=== PATIENT | female | born 1970 | race Caucasian/White ===

== ENCOUNTER → 2018-01-14 | Outpatient (CLI) | payer OTHER ==
--- NOTE | 2018-01-14 15:14 | Diagnostic Imaging Report ---
INDICATION: Routine screening. No prior studies are available for comparison. This is a baseline mammogram. The current study was also evaluated with a Computer Aided Detection (CAD) system. FINDINGS: Scattered fibronodular densities are identified bilaterally. No dominant mass or malignant-appearing microcalcifications are seen. The axillae are unremarkable. IMPRESSION: No mammographic features suspicious for malignancy are identified. ACR BI-RADS Category 1: Negative. Result letter will be mailed to the patient. Note: At least 10% of breast cancer is not imaged by mammography. Dictated by: Dictated on workstation # [id number]
== END ==
LOC: RAD 07:59
PROVIDERS: ATTEND Nurse Practitioner Family
DX: Z12.31 Encounter for screening mammogram for malignant neoplasm of breast (principal)
CPT/HCPCS: 77067

== ENCOUNTER 2018-01-28 12:09 | Outpatient (CLI) | payer SELFPAY ==
[~2018-01-28] VITALS: Ht 157.5 cm; Wt 76.7 kg
[2018-01-28 12:25] VITALS: BP 128/80
[2018-01-28 13:00] LABS: BASOPHILS % (AUTO) 1 % (0-10); EOSINOPHILS # (AUTO) 0.1 10^3/uL (0.0-0.3); EOSINOPHILS % (AUTO) 3 % (0-10); HEMATOCRIT 35 % (35-52); HEMOGLOBIN 11.7 G/DL (11.5-16.0); LYMPHOCYTES # (AUTO) 1.3 X 10^3 (1.0-4.0); LYMPHOCYTES % (AUTO) 27 % (12-44); MEAN CORPUSCULAR HEMOGLOBIN 28 PG (25-34); MEAN CORPUSCULAR HGB CONC 33 G/DL (32-36); MEAN CORPUSCULAR VOLUME 85 FL (80-99); MEAN PLATELET VOLUME 9.2 FL (7.4-10.4); MONOCYTES # (AUTO) 0.4 X 10^3 (0.0-1.0); MONOCYTES % (AUTO) 9 % (0-12); NEUTROPHILS # (AUTO) 2.8 X 10^3 (1.8-7.8); NEUTROPHILS % (AUTO) 60 % (42-75); PLATELET COUNT 268 10^3/uL (130-400); RED BLOOD COUNT 4.12 10^6/uL (4.35-5.85); WHITE BLOOD COUNT 4.6 10^3/uL (4.3-11.0)
[2018-01-30] MEDS ORDERED: DOCU100C37 PO (07:23)
[2018-01-30] MEDS ORDERED: HYDR-34 PO (07:23)
[2018-01-30] MEDS ORDERED: IBUP-1773 PO (07:23)
[2018-01-30] MEDS ORDERED: SIME80TA16 PO (07:23)
== END 2018-01-28 12:55 | disposition home or self-care (01) ==
LOC: PREOP 12:09
PROVIDERS: ATTEND Obstetrics & Gynecology
DX: Z01.812 Encounter for preprocedural laboratory examination (principal); Z11.2 Encounter for screening for other bacterial diseases; R10.2 Pelvic and perineal pain
CPT/HCPCS: 36415; 84703; 85025; 87081

== ENCOUNTER 2018-01-30 06:10 | Day surgery (SDC) | payer SELFPAY ==
[~2018-01-30] VITALS: Ht 157.5 cm; Wt 76.7 kg
[2018-01-30 06:30] VITALS: BP 122/78
[2018-01-30] MEDS ORDERED: FAMOTIDINE 20MG/2ML IV (PEPCID) IV ONE (06:45)
[2018-01-30] MEDS ORDERED: LACTATED RINGERS 1,000 ML IV PRN (06:45)
[2018-01-30] MEDS ORDERED: ceFAZolin INJECTION 1,000 MG in NS (IVPB) 50 ML IV ONE (06:45)
[2018-01-30] MEDS ORDERED: metroNIDAZOLE 500MG/100ML IVPB 100 ML IV ONE (06:45)
[2018-01-30] MEDS ORDERED: ceFAZolin 1,000 MG (ANCEF) VIAL ONE (06:51)
[2018-01-30] MEDS ORDERED: metroNIDAZOLE 500MG/100ML IVPB 100 ML ONE (06:51)
[2018-01-30] MEDS ORDERED: NS (IVPB) 50 ML ONE (06:51)
[2018-01-30] MEDS ORDERED: LIDOCAINE PF 2% 5 ML (XYLOCAINE) VIAL ONE (06:53)
[2018-01-30] MEDS ORDERED: ROCURONIUM 50 MG/5 ML (ZEMURON) VIAL IV ONE (06:53)
[2018-01-30] MEDS ORDERED: DEXAMETHASONE 10 MG/ML (DECADRON) 1 ML VIAL ONE (06:53)
[2018-01-30] MEDS ORDERED: fentaNYL INJECTION 100 MCG/2 ML AMP ONE (06:53)
[2018-01-30] MEDS ORDERED: ONDANSETRON 4 MG/2 ML (SDV) Z0FRAN ONE (06:53)
[2018-01-30] MEDS ORDERED: VASOPRESSIN INJECTION 20 UNIT/ML VIAL ONE ×2 (06:53→08:14)
[2018-01-30] MEDS ORDERED: proPOfol 200 MG/20 ML (DIPRIVAN) VIAL IV ONE (06:53)
[2018-01-30] MEDS ORDERED: BUPIVACAINE 0.25% 30 ML (SENSORCAINE) VIAL ONE (06:54)
[2018-01-30] MEDS ORDERED: MIDAZOLAM 2 MG/2 ML (VERSED) VIAL ONE (06:54)
[2018-01-30] MEDS ORDERED: NS (IVPB) 100 ML ONE ×2 (06:54→08:14)
[2018-01-30] MEDS ORDERED: SEVOFLURANE (ULTANE) 15 ML INHAL SOLN ONE ×8 (07:02→09:24)
--- NOTE | 2018-01-30 07:18 | Progress Note-Pre Operative ---
Pre-Operative Progress Note H&P Reviewed The H&P was reviewed, patient examined and no changes noted. Date Seen by Provider: Jan 30, 2018 Time Seen by Provider: 07:00 Date H&P Reviewed: Jan 30, 2018 Time H&P Reviewed: 07:00 Pre-Operative Diagnosis: POP, Cystocele, Rectocele BLANQUITA THOMASON DO Jan 30, 2018 7:18 am
--- NOTE | 2018-01-30 07:22 | Discharge Inst-Women's Service ---
Discharge Inst-Women's Serv Depart Medication/Instructions New, Converted or Re-Newed RX: RX on Chart Consults/Follow Up Additional Follow Up: Yes Orders/Referrals Dr. Bey in 7-10 days and in 8 weeks Activity Activity: Activity as Tolerated Driving Instructions: No Driving for 1 Week NO SMOKING: NO SMOKING Nothing Inside Vagina: No Douching, No [place], No Tampons Diet Discharge Diet: No Restrictions Symptoms to Report to : Bleeding Excessive, Pain Increased, Fever Over 101 Degrees F, Vaginal Bleeding Increase, Questions/Concerns For Any Problems or Questions: Contact Your Physician Skin/Wound Care Infection Signs and Symptoms: Increased Redness, Foul Odor of Wound, Increased Drainage, Skin Itchy or Has a Rash Operative Area Clean and Dry: Keep Incision Clean/Dry Stitches/[place]/Dermabond: Dermabond, Care of Stitches Bathing Instructions: BLANQUITA Elena DO Jan 30, 2018 7:22 am
[2018-01-30] MEDS ORDERED: HYDR-34 PO (07:23)
[2018-01-30] MEDS ORDERED: IBUP-1773 PO (07:23)
[2018-01-30] MEDS ORDERED: SIME80TA16 PO (07:23)
[2018-01-30] MEDS ORDERED: DOCU100C37 PO (07:23)
[2018-01-30] MEDS ORDERED: ZOLPIDEM 5 MG (AMBIEN) TAB PO PRN (07:30)
[2018-01-30] MEDS ORDERED: ONDANSETRON 4 MG/2 ML (SDV) Z0FRAN IV PRN (07:30)
[2018-01-30] MEDS ORDERED: ANTACID SUSP 30 ML UDC (MYLANTA) PO PRN (07:30)
[2018-01-30] MEDS ORDERED: CHLORASEPTIC LOZENGE MM PRN (07:30)
[2018-01-30] MEDS ORDERED: HYDROcodone/APAP 7.5 MG/325 MG (LORTAB, LORCET PLUS) TABLET PO PRN (07:30)
[2018-01-30] MEDS ORDERED: DOCUSATE SODIUM 100 MG (COLACE) CAP PO PRN (07:30)
[2018-01-30] MEDS ORDERED: SIMETHICONE 80 MG (MYLICON) CHEW PO PRN (07:30)
[2018-01-30] MEDS: LACTATED RINGERS 1,000 ML IV SCH ×3 (08:00→21:00)
[2018-01-30] MEDS ORDERED: ESTRADIOL VAGINAL CREAM 42.5 GM (ESTRACE) VG ONE (09:07)
[2018-01-30] MEDS ORDERED: morphine INJ 10 MG/ML 1ML (SYR OR VIAL) ONE (09:18)
[2018-01-30] MEDS: KETOROLAC 30 MG/ML VIAL IV PRN ×3 (09:40→23:51)
[2018-01-30] MEDS ORDERED: ONDANSETRON 4 MG/2 ML (SDV) Z0FRAN IVP PRN (09:45)
[2018-01-30] MEDS: morphine INJ 10 MG/ML 1ML (SYR OR VIAL) IVP PRN ×3 (09:51→10:00)
[2018-01-30 10:33] VITALS: BP 124/74
--- NOTE | 2018-01-30 13:48 | Anesthesia-General Post-Op ---
General Patient Condition Mental Status/LOC: Same as Preop Cardiovascular: Satisfactory Nausea/Vomiting: Absent Respiratory: Satisfactory Pain: Controlled Complications: Absent Post Op Complications Complications None Follow Up Care/Instructions Patient Instructions None needed. Anesthesia/Patient Condition Patient Condition Patient is doing well, no complaints, stable vital signs, no apparent adverse anesthesia problems. No complications reported per nursing. CARLOS POTTER CRNA Jan 30, 2018 13:48
[2018-01-30 16:30] VITALS: BP 118/75
--- NOTE | 2018-01-30 18:20 | OPERATIVE REPORT ---
DATE OF SERVICE: 01/30/2018 PREOPERATIVE DIAGNOSES: A 47-year-old female with pelvic organ prolapse, grade 2 to grade 3 cystocele, grade 3 rectocele. POSTOPERATIVE DIAGNOSES: A 47-year-old female with pelvic organ prolapse, grade 2 to grade 3 cystocele, grade 3 rectocele, fibroid uterus. PROCEDURE PERFORMED: Robotic-assisted total laparoscopic hysterectomy with bilateral salpingectomy with total weight greater than 250 grams and a posterior colporrhaphy and perineoplasty. SURGEON: Kentrell Bey DO. SCORER SINGLE: MICHELLE Dunn. ANESTHESIA: General endotracheal. ESTIMATED BLOOD LOSS: 50 mL. URINE OUTPUT: 50 mL, clear at the end of the procedure. FLUIDS: 1500 mL of lactated Ringer solution. FINDINGS: A slightly bulky and enlarged uterus with a subserosal fibroid on the right side of the uterine fundus, grossly normal bilateral ovaries, grossly normal-appearing fallopian tube with some adhesions of the right fallopian tube to the right ovary. SPECIMEN SENT: Uterus, bilateral fallopian tubes and right ovarian cyst. INDICATIONS FOR PROCEDURE: This 47-year-old female was a consultation in my office for pelvic organ prolapse. She was having descent of the cervix beyond the vaginal introitus and it was causing bleeding and even ulceration at times. She was having to hold the back inclined. I discussed with the patient conservative management would include a pessary versus proceeding with robotic hysterectomy or hysterectomy other method. The patient wished to proceed with the first procedure robotically due to his minimally invasive technique. I also discussed with patient a possible anterior and posterior colporrhaphy due to the descent of the anterior vaginal lopez. Risks of these procedures were discussed with the patient in detail including risks of bleeding, infection, damage to surrounding structures including but not limited to bowel, bladder, ureter, kidneys, risk for possible reoperation and risk for possible blood transfusion and even . After everything was discussed with the patient, consent was obtained in the preoperative area and the patient was taken to the operating room. OPERATIVE REPORT IN DETAIL: Once in the operating room, general anesthesia was found to be adequate, placed in dorsal lithotomy position, prepped and draped in normal sterile fashion. A timeout was performed. A Flanagan catheter was placed using sterile technique. I then placed a weighted speculum in the patient's vagina. A right angle retractor was used to visualize the cervix. This was already hanging out of the vagina. It was grasped at 12 o'clock position using a single tooth tenaculum. A 0 Vicryl suture was placed in the anterior lip of the cervix and the tenaculum was removed. I then gently sounded the uterine cavity, the depth was found to be 10 cm. I then placed a 10 cm Yessi uterine manipulator tip and a 2.5 cm colpotomy ring into the uterine endometrial canal and deployed the balloon and advanced the colpotomy ring around the vaginal fornix. Once this was in place, I am able to appreciate actual bimanual manipulation on exam. I then performed a change of gloves and removed the weighted speculum and taken my attention to the abdomen where infraumbilically I infiltrated the skin using 0.25% Marcaine and make an 8 mm incision and directed the Veress needle through this incision until intraperitoneal placement was confirmed using a saline drop test. I proceeded with insufflation using CO2 gas. Opening pressure of 3 mmHg was noted. I proceed to a maximum pressure of 15 mmHg, at which point I removed the Veress needle, introduced an 8 mm blunt da Evangelista camera trocar. Once this was in place, I am able to confirm intraperitoneal placement using the da Evangelista laparoscope. I then had the patient placed in steep Trendelenburg and made visualization of the pelvic findings described in my findings above. I then placed 2 lateral trocars approximately 8 cm lateral to my infraumbilical trocar. These were both 8 mm trocars. The skin was infiltrated using 0.25% Marcaine and incisions were made with a knife and trocars were placed under direct visualization of the laparoscope into the peritoneal cavity. Once these were in place, I then brought in the da Evangelista robot and docked in appropriate fashion placing the vessel sealer in the left hand and monopolar shear in the right hand and performed the following dissection bilaterally. I started at the uteroovarian ligament, bipolar cauterized and transected using the vessel sealer. I then created a window in the mesosalpinx using monopolar pierre and took this laterally amputating the fallopian tube from the mesosalpinx and its surrounding blood supply. I then grasped the round ligament, bipolar cauterized this and transected using the vessel sealer. I then able to grab the entire broad ligament and bipolar cauterized and transected using vessel sealer down to the level of the lower uterine segment, at which point I the anterior and posterior leaflets of the broad ligament. Anterior leaflet was taken around to the anterior vaginal fornix, posterior leaflet was taken around to the posterior vaginal fornix. This allowed me to skeletonize the uterine vessels laterally staying clear of the ureter. I then bipolar cauterized the uterine vessels after they have been skeletonized and transected them using the vessel sealer. I then created a colpotomy at the 12 o'clock position using monopolar pierre and took this circumferentially around the vaginal fornix amputating the cervix away from the vagina. The entire specimen was then removed from the vagina. I then closed the lateral vaginal apices of the vaginal cuff using 2-0 Vicryl suture in a [id number] fashion colposuspending them to the uterosacral ligaments. I then closed the remainder of the vaginal cuff using V-Loc in a running fashion, after which there was no active bleeding noted from any of my dissection planes. I then undocked the da Evangelista robot and proceeded with the remainder of the case laparoscopically by copiously irrigating the pelvis using normal saline. There was no active bleeding noted from any of my dissection planes. I then placed FloSeal and a hemostatic agent over all my planes of dissection. I had the patient taken out of steep Trendelenburg. After this was done, I removed the lateral trocars under direct visualization of the laparoscope. The infraumbilical trocar was left in place to introduce 10 mL of 0.25% Marcaine for postoperative pain management. I then removed this trocar as well after insufflation was released. I then closed the skin using 4-0 Monocryl interrupted subcuticular stitches. Dermabond was applied to the incision and Band-Aids were placed over these. I then took my attention to the abdomen where a Flanagan catheter was left in place and the cystocele was evaluated and found to be significantly reduced; however, there was still a significant rectocele, so I decided to proceed with this portion of the procedure. I infiltrated the perineal body and the spacing between the perineal body using vasopressin as well as all of the margins of the rectocele using vasopressin concentration of 20 units in 100 mL normal saline. The submucosa was infiltrated of all of the affected areas. This allowed me to dissect with minimal bleeding. I then created an upside down triangle incision across the base of the perineal body going down to the perineum and excised the perineum exposing the bulbospongiosus muscles. On the lateral aspects of these, I took an undermining approach using Metzenbaum scissors, sharply dissecting submucosally around the margins of the rectocele. I then incised the lateral aspects of the rectocele through the mucosa using the Metzenbaum scissors and bluntly dissect all of this tissue off exposing the rectocele defect in its entirety. I then closed the rectocele and plicated using 3-0 Vicryl suture in running fashion grabbing the mucosa, the submucosa and the rectovaginal fascia, all in one suture layer. This was done in a locking fashion all the way to the level of the mucocutaneous junction, at which point I placed two crown stitches of 0 Vicryl suture to the bulbospongiosus muscle reapproximating and plicating the perineal body. I then closed the remainder of the perineum in similar fashion to an episiotomy by running it submucosally to the apex and brought it back up subcuticular to the mucocutaneous junction, at which point I buried the suture there. I then packed the vagina using Premarin-soaked vaginal packing. Flanagan catheter was left in place. Lap and sponge counts were correct at the end of the procedure. Instrument counts were correct as well. Two grams of Ancef, 500 mg of Flagyl were given preoperatively for infection prophylaxis. Job ID: [id number] DocumentID: [id number] Dictated Date: 01/30/2018 09:41:05 Meteorology Professor Date: 01/30/2018 18:18:55 Dictated By: KENTRELL BEY DO
[2018-01-30 19:20] VITALS: BP 121/75
[2018-01-30] MEDS ORDERED: INFLUENZA TRIvalent 2017-2018 0.5 ML/45 MCG SYR IM ONE (20:00)
[2018-01-30 23:52] VITALS: BP 109/63
[2018-01-31] MEDS ORDERED: IBUPROFEN 600 MG (MOTRIN) TAB PO PRN
[2018-01-31 05:05] VITALS: BP 121/67
--- NOTE | 2018-01-31 07:14 | Progress Note-Standard ---
Standard Progress Note Progress Notes/Assess & Plan Date Seen by Provider: Jan 31, 2018 Time Seen by Provider: 07:20 Progress/Assessment & Plan POD #1 s/p ESTRELLA Longoria., posterior colporrhaphy Vital Sign - Last 12Hours 01/30/18 01/30/18 01/31/18 19:20 23:52 05:05 Temp 97.8 97.6 98.7 Pulse 85 72 80 Resp 18 18 18 B/P (MAP) 121/75 (90) 109/63 (78) 121/67 (85) Pulse Ox 95 97 97 O2 Delivery Room Air Intake and Output 01/31/18 00:00 Intake Total 1200 ml Output Total 1025 ml Balance 175 ml GUERO JOHANSEN DO Jan 31, 2018 07:14
[2018-01-31 07:35] VITALS: BP 118/74
[2018-01-31] MEDS ORDERED: BENZOCAINE/MENTHOL (DERMOPLAST) 56 ML CAN TP ONE (07:53)
[2018-01-31] MEDS ORDERED: BENZOCAINE/MENTHOL (DERMOPLAST) 56 ML CAN TP PRN (08:00)
== END 2018-01-31 08:15 | disposition home or self-care (01) ==
LOC: SDC 06:10 → WS 10:30 → SDC 01-31 08:15
PROVIDERS: ATTEND Obstetrics & Gynecology
DX: N81.11 Cystocele, midline (principal); N81.6 Rectocele; D25.2 Subserosal leiomyoma of uterus; N83.202 Unspecified ovarian cyst, left side
CPT/HCPCS: 86850; 86900; 86901; 88305; 88307; 94664